=== PATIENT | male | born 1965 | race Caucasian/White ===

== ENCOUNTER 2017-11-02 07:06 | Inpatient (IN) | payer SELFPAY ==
[2017-11-02] VITALS (8 sets, daily range): BP systolic 121–187; BP diastolic 70–104; PULSE 53–79; RESP 18–20; TEMP 98–98.3; O2SAT 92–98
[~2017-11-02] VITALS: Ht 182.9 cm; Wt 95.7 kg
[~2017-11-02 07:06] MED LIST: LIPI40TA PO; PRIN10TA PO; PROM1SUP12 PR; [UNRECOGNIZED DRUG - CODE] PO
--- NOTE | 2017-11-02 07:29 | PD ---
HPI Chief Complaint: Neuro Symptoms/ Deficits Time Seen by Provider: 07:18 Travel History International Travel<30 days: No Contact w/Intl Traveler<30days: No Traveled to known affect area: No History of Present Illness HPI 52yo M with PMH of HTN and HLD presents to the ED with c/o right sided numbness since he woke up at 4:45am this morning. Said he went to bed normal at 10pm last night. Woke up and had right facial, right arm and right leg numbness that lasted about 10 minutes. Said she he had decreased right peripheral vision this morning that has resolved. said his speech is also not normal , seemed a little more slurred to her. Denies any history of CVA, cocaine or drug use, chest pain, sob, n/v, abdominal pain, focal weakness or numbness. Said he felt a little dizzy yesterday. PFSH Past Medical History Arthritis: No Blood Disorders: No Heart Rhythm Problems: No Cancer: No Cardiovascular Problems: Yes (HTN) High Cholesterol: Yes Chemotherapy: No Chest Pain: Yes Congestive Heart Failure: No Cerebrovascular Accident: No Diminished Hearing: No GERD: No Glaucoma: No Headaches: No Hepatitis: Yes (HEPATITIS C) Hiatal Hernia: No Hypertension: Yes Musculoskeletal: Yes Psychiatric: No Myocardial Infarction: No Radiation Therapy: No Seizures: No Thyroid Disease: No Ulcer: No Past Surgical History AICD: No Cholecystectomy: Yes (2005) Genitourinary Surgery: No Pacemaker: No Thoracic Surgery: No Other Surgery: Yes (left hand) Family History Family Myocardial Infarction: Yes Social History Alcohol Use: No Tobacco Use: Yes (CIGARS/DAILY) Substance Use: Yes (MARIJUANA) Allergies-Medications (Allergen,Severity, Reaction): Coded Allergies: No Known Allergies (Verified Allergy, Severe, 05/16/08) Reported Meds & Prescriptions Reported Meds & Active Scripts Active Phenergan 25 mg supp (Promethazine HCl) 25 Mg Sup 25 Mg OR Q8HPRN Reported Prinivil (Lisinopril) 10 Mg Tab 10 Mg PO DAILY Sular (Nisoldipine) 10 Mg Tab 0 Mg PO UNKNOWN DOSE Lipitor (Atorvastatin Calcium) 40 Mg Tab 40 Mg PO DAILY Review of Systems Except as stated in HPI: all other systems reviewed are Neg Physical Exam Narrative GENERAL: 52yo M not in distress. SKIN: Focused skin assessment warm/dry. HEAD: Atraumatic. Normocephalic. EYES: Pupils equal and round. EOMI. No scleral icterus. No injection or drainage. ENT: No nasal bleeding or discharge. Mucous membranes pink and moist. NECK: Trachea midline. No JVD. CARDIOVASCULAR: Regular rate and rhythm. No murmur appreciated. RESPIRATORY: No accessory muscle use. Clear to auscultation. Breath sounds equal bilaterally. GASTROINTESTINAL: Abdomen soft, non-tender, nondistended. MUSCULOSKELETAL: No obvious deformities. No clubbing. No cyanosis. No edema. NEUROLOGICAL: Awake and alert. No obvious cranial nerve deficits. Motor grossly within normal limits. Normal speech. NIH stroke 0. PSYCHIATRIC: Appropriate mood and affect; insight and judgment normal. Data Data Last Documented VS Vital Signs Date Time Temp Pulse Resp B/P (MAP) Pulse Ox O2 Delivery O2 Flow Rate FiO2 11/02/17 07:10 76 18 130/81 (97) 97 11/02/17 07:08 98.3 Room Air Orders Orders Complete Blood Count With Diff (11/02/17 07:25) Basic Metabolic Panel (Bmp) (11/02/17 07:25) Prothrombin Time / Inr (Pt) (11/02/17 07:25) Act Partial Throm Time (Ptt) (11/02/17 07:25) Electrocardiogram (11/02/17 ) Ct Brain W/O Iv Contrast(Rout) (11/02/17 ) Aspirin (Aspirin) (11/02/17 08:45) Admit Order (Ed Use Only) (11/02/17 08:57) Labs Laboratory Tests Test 11/02/17 07:30 White Blood Count 10.9 TH/MM3 Red Blood Count 4.85 MIL/MM3 Hemoglobin 17.0 GM/DL Hematocrit 48.2 % Mean Corpuscular Volume 99.3 FL Mean Corpuscular Hemoglobin 35.1 PG Mean Corpuscular Hemoglobin Concent 35.3 % Red Cell Distribution Width 12.8 % Platelet Count 215 TH/MM3 Mean Platelet Volume 8.6 FL Neutrophils (%) (Auto) 67.8 % Lymphocytes (%) (Auto) 21.9 % Monocytes (%) (Auto) 8.7 % Eosinophils (%) (Auto) 1.2 % Basophils (%) (Auto) 0.4 % Neutrophils # (Auto) 7.4 TH/MM3 Lymphocytes # (Auto) 2.4 TH/MM3 Monocytes # (Auto) 0.9 TH/MM3 Eosinophils # (Auto) 0.1 TH/MM3 Basophils # (Auto) 0.0 TH/MM3 CBC Comment DIFF FINAL Differential Comment Prothrombin Time 10.7 SEC Prothromb Time International Ratio 1.1 RATIO Activated Partial Thromboplast Time 27.0 SEC Blood Urea Nitrogen 19 MG/DL Creatinine 0.98 MG/DL Random Glucose 112 MG/DL Calcium Level 9.4 MG/DL Sodium Level 139 MEQ/L Potassium Level 3.9 MEQ/L Chloride Level 104 MEQ/L Carbon Dioxide Level 29.7 MEQ/L Anion Gap 5 MEQ/L Estimat Glomerular Filtration Rate 80 ML/MIN Hemoglobin A1c 5.6 % Total Bilirubin 0.3 MG/DL Direct Bilirubin 0.1 MG/DL Indirect Bilirubin 0.2 MG/DL Aspartate Amino Transf (AST/SGOT) 36 U/L Alanine Aminotransferase (ALT/SGPT) 45 U/L Alkaline Phosphatase 107 U/L Total Protein 8.2 GM/DL Albumin 4.1 GM/DL Triglycerides Level 104 MG/DL Cholesterol Level 168 MG/DL LDL Cholesterol 110 MG/DL HDL Cholesterol 37.6 MG/DL Cholesterol/HDL Ratio 4.46 RATIO MDM Medical Decision Making Medical Screen Exam Complete: Yes Emergency Medical Condition: Yes Interpretation(s) EKG: NSR 64 Differential Diagnosis TIA vs. peripheral neuropathy Narrative Course 52yo M with right sided numbness that has resolved. Labs reviewed, no leukocytosis. Glucose 112. CT brain showed lacune in left thalamus could be acute lacunar infarct given clinical symptoms. Will admit pt for CVA work up. Pt given aspirin and discussed with hospitalist Dr. Blanco. Diagnosis Primary Impression: Lacunar infarct, acute Admitting Information Admitting Physician Requests: Alayna Silva DO Nov 02, 2017 07:29
[2017-11-02 07:49] LABS: AUTOMATED NEUTROPHIL # 7.4 TH/MM3 (1.8-7.7); BASOPHIL % 0.4 % (0.0-2.0); EOSINOPHIL # 0.1 TH/MM3 (0-0.4); EOSINOPHIL % 1.2 % (0.0-4.0); HEMATOCRIT 48.2 % (39.0-51.0); HEMO FLAGS DIFF FINAL; LYMPH % 21.9 % (9.0-44.0); LYMPHOCYTE # 2.4 TH/MM3 (1.0-4.8); MEAN CELL VOLUME 99.3 FL (80.0-100.0); MEAN CORPUSCULAR HEMOGLOBIN 35.1 PG (27.0-34.0); MEAN CORPUSCULAR HGB CONC 35.3 % (32.0-36.0); MONO % 8.7 % (0.0-8.0); NEUT % 67.8 % (16.0-70.0); PLATELET COUNT 215 TH/MM3 (150-450); RED BLOOD COUNT 4.85 MIL/MM3 (4.50-5.90); RED CELL DISTRIBUTION WIDTH 12.8 % (11.6-17.2); WHITE BLOOD COUNT 10.9 TH/MM3 (4.0-11.0)
[2017-11-02 07:59] LABS: INTERNATIONAL NORMALIZED RATIO 1.1 RATIO; PROTHROMBIN TIME - PATIENT 10.7 SEC (9.8-11.6)
[2017-11-02 08:12] LABS: BICARBONATE 29.7 MEQ/L (21.0-32.0); POTASSIUM 3.9 MEQ/L (3.5-5.1)
--- NOTE | 2017-11-02 08:12 | RADRPT ---
EXAM DATE/TIME: 11/02/2017 07:48 [facility] COMPARISON: No previous studies available for comparison. INDICATIONS : Right sided weakness upon waking RADIATION DOSE: 56.35 CTDIvol (mGy) MEDICAL HISTORY : Hypertension. SURGICAL HISTORY : Cholecystectomy. ENCOUNTER: Initial ACUITY: 1 day PAIN SCALE: 0/10 LOCATION: cranial TECHNIQUE: Multiple contiguous axial images were obtained of the head. Using automated exposure control and adj ustment of the mA and/or kV according to patient size, radiation dose was kept as low as reasonably a chievable to obtain optimal diagnostic quality images. DICOM format image data is available electro nically for review and comparison. FINDINGS: CEREBRUM: A lacune in the left thalamus is seen. The ventricles are normal for age. No evidence of midline bob ft, mass lesion, hemorrhage or acute infarction. No extra-axial fluid collections are seen. POSTERIOR FOSSA: The cerebellum and brainstem are intact. The 4th ventricle is midline. The cerebellopontine angle i s unremarkable. EXTRACRANIAL: The visualized portion of the orbits is intact. SKULL: The calvaria is intact. No evidence of skull fracture. CONCLUSION: 1. Lacune in the left thalamus could be acute lacunar infarct given clinical symptoms. MRI recommende d for confirmation. 2. Otherwise unremarkable CT brain. Julius Chaudhry MD on November 02, 2017 at 8:09 Board Certified Radiologist. This report was verified electronically.
[2017-11-02] MEDS ORDERED: ASPIRIN 325 MG TAB PO ONE (08:45)
[2017-11-02] MEDS ORDERED: ONDANSETRON HCL 4 MG/2 ML VIAL IVP PRN (09:45)
[2017-11-02] MEDS ORDERED: NALOXONE HCL 0.4 MG/ML AMP IV PUSH PRN (09:45)
[2017-11-02] MEDS ORDERED: ACETAMINOPHEN 325 MG TAB PO PRN ×2 (09:45)
[2017-11-02] MEDS ORDERED: SODIUM CHLORIDE 0.9% FLUSH 10 ML FLUSH IV FLUSH PRN (09:45)
[2017-11-02] MEDS: SODIUM CHLOR 0.9% 1000 ML INJ 1,000 ML IV SCH ×2 (10:39→22:53)
[2017-11-02] MEDS: ENOXAPARIN SODIUM 40 MG/0.4 ML SYRINGE SQ SCH (12:02)
--- NOTE | 2017-11-02 13:54 | HHI.HP ---
[facility] Beau [facility] M.D. Admission Diagnosis TIA Diagnoses: Chief Complaint: Right-sided numbness and tingling Travel History International Travel<30 Days: No Contact w/Intl Traveler <30 Da: No Traveled to Known Affected Are: No History of Present Illness Written by Juani Borges, acting as scribe for Dr. Blanco on 11/02/17 at 13: 43. Patient is a 52-year-old male with a primary medical history of HTN and HLD who came into the hospital for complaints of numbness and tingling in the right side of his body including his arm and around the mouth, and also vision changes. Patient states that he hasn't been taking his blood pressure medication for the past 2 months and has restarted taking it after seeing his PCP about 2 weeks ago. States that his blood pressure was measured and it was slightly elevated. States that for the past few days that he has been experiencing mild numbness and tingling on the right side, however, this morning when he woke up from sleep his symptoms were quite severe. He had a hard time getting up. As per , the patient was struggling to ambulate. Patient states that he has also had some visual changes and he felt dizzy, describing the room as spinning around. He endorsed some blurry vision. States that all of these sensations were happening while he was at rest and not aggravated by any activities. Patient continues to have some numbness and tingling on the right side as well as around his mouth on exam. Denies any headaches, palpitations, chest pain. Denies any fevers, chills, nausea, vomiting, diarrhea. Review of Systems Except as stated in HPI: all other systems reviewed are Neg Past Family Social History Past Medical History HTN HLD Hep C Past Surgical History Cholecystectomy Left hand surgeon Reported Medications Reported Meds & Active Scripts Active Phenergan 25 mg supp (Promethazine HCl) 25 Mg Sup 25 Mg NE Q8HPRN Reported Prinivil (Lisinopril) 10 Mg Tab 10 Mg PO DAILY Lipitor (Atorvastatin Calcium) 40 Mg Tab 40 Mg PO DAILY Allergies: Coded Allergies: No Known Allergies (Verified Allergy, Severe, 05/16/08) Active Ordered Medications Current Medications Medications (Trade) Dose Ordered Sig/Yunior Route Start Time Stop Time Status Last Admin (Lipitor) 40 mg DAILY PO 11/03/17 09:00 Sodium Chloride 1,000 ml @ 75 mls/hr [id number] IV 11/02/17 10:00 11/04/17 01:59 11/02/17 10:39 (NS Flush) 2 ml UNSCH PRN IV FLUSH 11/02/17 09:45 (NS Flush) 2 ml BID IV FLUSH 11/02/17 21:00 (Tylenol) 650 mg Q4H PRN PO 11/02/17 09:45 (Zofran Inj) 4 mg Q6H PRN IVP 11/02/17 09:45 (Lovenox Inj) 40 mg Q24H SQ 11/02/17 11:00 11/02/17 12:02 (Tylenol) 650 mg Q6H PRN PO 11/02/17 09:45 (Narcan Inj) 0.4 mg UNSCH PRN IV PUSH 11/02/17 09:45 (Krystina-Colace) 1 tab BID PO 11/02/17 21:00 Family History Father's of heart attack at age 49 and mother of stroke Social History Denies alcohol use Smokes cigar about 5 times per day Marijuana use occasionally Physical Exam Vital Signs Vital Signs Date Time Temp Pulse Resp B/P (MAP) Pulse Ox O2 Delivery O2 Flow Rate FiO2 11/02/17 11:13 53 11/02/17 10:22 11/02/17 10:11 98.0 56 20 155/86 (109) 96 11/02/17 10:00 66 20 133/71 (91) 98 Room Air 11/02/17 07:10 76 18 130/81 (97) 97 11/02/17 07:08 98.3 60 20 187/104 (131) 98 Room Air Physical Exam GENERAL: This is a well-nourished, well-developed patient, in no apparent distress. SKIN: Cool and dry. Multiple healing wounds from abrasions right > left lower extremity. HEAD: Normocephalic. No temporal or scalp tenderness. EYES: Pupils equal round and reactive. Extraocular motions intact. No scleral icterus. No injection or drainage. ENT: Nose without bleeding. Throat without erythema. Uvula midline. Airway patent. NECK: Trachea midline. No JVD or lymphadenopathy. Supple, nontender, no meningeal signs. CARDIOVASCULAR: Regular rate and rhythm without murmurs, gallops, or rubs. RESPIRATORY: Clear to auscultation. Breath sounds equal bilaterally. No wheezes , rales, or rhonchi. GASTROINTESTINAL: Abdomen soft, non-tender, nondistended. No hepato-splenomegaly , or palpable masses. No guarding. MUSCULOSKELETAL: Extremities without clubbing, cyanosis, or edema. NEUROLOGICAL: Awake and alert. Cranial nerves II through XII intact. Oriented to time, person, place. Motor and sensory grossly within normal limits. Normal speech. Normal [id number] test. PSYCH: Mood and affect appropriate. Laboratory Laboratory Tests Test 11/02/17 07:30 White Blood Count 10.9 Red Blood Count 4.85 Hemoglobin 17.0 Hematocrit 48.2 Mean Corpuscular Volume 99.3 Mean Corpuscular Hemoglobin 35.1 Mean Corpuscular Hemoglobin Concent 35.3 Red Cell Distribution Width 12.8 Platelet Count 215 Mean Platelet Volume 8.6 Neutrophils (%) (Auto) 67.8 Lymphocytes (%) (Auto) 21.9 Monocytes (%) (Auto) 8.7 Eosinophils (%) (Auto) 1.2 Basophils (%) (Auto) 0.4 Neutrophils # (Auto) 7.4 Lymphocytes # (Auto) 2.4 Monocytes # (Auto) 0.9 Eosinophils # (Auto) 0.1 Basophils # (Auto) 0.0 CBC Comment DIFF FINAL Differential Comment Prothrombin Time 10.7 Prothromb Time International Ratio 1.1 Activated Partial Thromboplast Time 27.0 Blood Urea Nitrogen 19 Creatinine 0.98 Random Glucose 112 Calcium Level 9.4 Sodium Level 139 Potassium Level 3.9 Chloride Level 104 Carbon Dioxide Level 29.7 Anion Gap 5 Estimat Glomerular Filtration Rate 80 Result Diagram: 11/02/1730 11/02/1730 Imaging Last Impressions Head CT 11/02/17 0000 Signed Impressions: Service Date/Time: Thursday, November 02, 2017 07:48 - CONCLUSION: 1. Lacune in the left thalamus could be acute lacunar infarct given clinical symptoms. MRI recommended for confirmation. 2. Otherwise unremarkable CT brain. MD Blaise Nguyen VTE Risk Assessment Caprini VTE Risk Assessment: Mod/High Risk (score >= 2) Caprini Risk Assessment Model Point Value = 1 Point Value = 2 Point Value = 3 Point Value = 5 Age 41-60 Minor surgery BMI > 25 kg/m2 Swollen legs Varicose veins or History of unexplained or recurrent spontaneous Oral contraceptives or hormone replacement Sepsis (< 1 month) Serious lung disease, including pneumonia (< 1 month) Abnormal pulmonary function Acute myocardial infarction Congestive heart failure (< 1 month) History of inflammatory bowel disease Medical patient at bed rest Age 61-74 Arthroscopic surgery Major open surgery (> 45 min) Laparoscopic surgery (> 45 min) Malignancy Confined to bed (> 72 hours) Immobilizing plaster cast Central venous access Age >= 75 History of VTE Family history of VTE Factor V Leiden Prothrombin [id number] Lupus anticoagulant Anticardiolipin antibodies Elevated serum homocysteine Heparin-induced thrombocytopenia Other congenital or acquired thrombophilia Stroke (< 1 month) Elective arthroplasty Hip, pelvis, or leg fracture Acute spinal cord injury (< 1 month) Prophylaxis Regimen Total Risk Factor Score Risk Level Prophylaxis Regimen 0-1 Low Early ambulation 2 Moderate Order ONE of the following: *Sequential Compression Device (SCD) *Heparin 5000 units SQ BID 3-4 Higher Order ONE of the following medications: *Heparin 5000 units SQ TID *Enoxaparin/Lovenox 40 mg SQ daily (WT < 150 kg, CrCl > 30 mL/min) *Enoxaparin/Lovenox 30 mg SQ daily (WT < 150 kg, CrCl > 10-29 mL/min) *Enoxaparin/Lovenox 30 mg SQ BID (WT < 150 kg, CrCl > 30 mL/min) AND/OR *Sequential Compression Device (SCD) 5 or more Highest Order ONE of the following medications: *Heparin 5000 units SQ TID (Preferred with Epidurals) *Enoxaparin/Lovenox 40 mg SQ daily (WT < 150 kg, CrCl > 30 mL/min) *Enoxaparin/Lovenox 30 mg SQ daily (WT < 150 kg, CrCl > 10-29 mL/min) *Enoxaparin/Lovenox 30 mg SQ BID (WT < 150 kg, CrCl > 30 mL/min) AND *Sequential Compression Device (SCD) Assessment and Plan Problem List: (1) HTN (hypertension) ICD Code: I10 - Essential (primary) hypertension (2) HLD (hyperlipidemia) ICD Code: E78.5 - Hyperlipidemia, unspecified (3) TIA (transient ischemic attack) ICD Code: G45.9 - Transient cerebral ischemic attack, unspecified Assessment and Plan TIA versus acute CVA HTN HLD- LDL 110 - EKG with normal sinus rhythm. - Continues to have numbness and tingling on the right side and also his mouth/ lips are tingling. - CT of the brain showed 1. Lacune in the left thalamus could be acute lacunar infarct given clinical symptoms. MRI recommended for confirmation. - MRI ordered. - Check echocardiogram. - Check carotid US. - ASA 1 dose now, start 81 mg daily tomorrow. - Permissive hypertension. Restart home dose atorvastatin. - check hemoglobin A1c. - Neurochecks every 4 hours, cardiac telemetry. - neurology consult as needed. DVT prop Lovenox Code Status Full code Discussed Condition With Discuss condition with patient, family members, nursing, ED attending Attending Statement This note was transcribed by bruno Borges. I, Dr. Francisco Blanco personally performed the history, physical exam, and medical decision making; and confirmed the accuracy of the information in the transcribed note. Authenticated by Dr. Francisco Blanco on 11/02/17 at 14:38. Juani Castillo Nov 02, 2017 13:54 Francisco Blanco DO Nov 02, 2017 14:38
[2017-11-02 13:59] LABS: INDIRECT BILIRUBIN 0.2 MG/DL (0.0-0.8); TOTAL BILIRUBIN ADULT 0.3 MG/DL (0.2-1.0)
[2017-11-02 14:00] LABS: HDL CHOLESTEROL 37.6 MG/DL (40.0-60.0); LDL CHOLESTEROL 110 MG/DL (0-99)
--- NOTE | 2017-11-02 14:49 | RADRPT ---
EXAM DATE/TIME: 11/02/2017 13:50 [facility] COMPARISON: No previous studies available for comparison. INDICATIONS : Cerebrovascular accident. Right sided numbness. MEDICAL HISTORY : Hypertension. Hepatitis C. HLD. SURGICAL HISTORY : Cholecystectomy. ENCOUNTER: Initial ACUITY: 1 day PAIN SCORE: 0/10 LOCATION: Bilateral neck PEAK SYSTOLIC VELOCITIES (cm/sec): ICA/CCA RATIO: Right: 1.1 Left: 1.1 ICA: Right: 88 Left: 101 CCA: Right: 79 Left: 79 ECA: Right: 131 Left: 92 VERTEBRAL: Right: 46 antegrade Left: 56 antegrade Elevated flow velocities and ICA/CCA ratios have been found to correlate with increased degrees of vessel stenosis, calculated as percentage of diameter relative to a normal segment of distal ICA/CCA FINDINGS: Intimal thickening with mild to moderate plaque is identified in both carotid bifurcations. RIGHT CAROTID: No significant stenosis is visualized. The waveforms are within normal limits. LEFT CAROTID: No significant stenosis is visualized. The waveforms are within normal limits. VERTEBRAL ARTERIES: Antegrade flow is seen in both vertebral arteries. MISCELLANEOUS: None. CONCLUSION: 1. Mild to moderate bilateral carotid atherosclerotic disease. 2. No evidence of hemodynamically significant stenosis. 3. Antegrade flow both vertebral arteries. Dimitry Woodall MD on November 02, 2017 at 14:45 Board Certified Radiologist. This report was verified electronically.
--- NOTE | 2017-11-02 16:20 | RADRPT ---
EXAM DATE/TIME: 11/02/2017 15:24 [facility] COMPARISON: No previous studies available for comparison. INDICATIONS : CVA. Right sided weakness and vision issues this morning. MEDICAL HISTORY : Hypertension. Hypercholesterolemia. SURGICAL HISTORY : Cholecystectomy. ENCOUNTER: Initial ACUITY: 1 day PAIN SCORE: 4/10 LOCATION: Right cranial TECHNIQUE: Multiplanar, multisequence MRI of the brain was performed without contrast. FINDINGS: CEREBRUM: A small T2 hyperintense focus with restricted diffusion is identified centrally within the left thala mus. There is no associated hemorrhage, edema or mass effect. The lesion measures approximately 4-5 m m in size. The ventricles are normal for age. No evidence of midline shift, mass lesion, hemorrhage or acute cortical infarction. No extraaxial fluid collections are seen. The pituitary gland and sup rasellar cistern are normal in configuration. WHITE MATTER: No significant signal abnormalities are seen in the white matter. POSTERIOR FOSSA: The cerebellum and brainstem are intact. The 4th ventricle is midline. The cerebellopontine angle is unremarkable. The cerebellar tonsils are normal in position. DIFFUSION IMAGING: No other focal areas of restricted diffusion are seen. EXTRACRANIAL: The visualized portions of the orbits and paranasal sinuses are unremarkable. CONCLUSION: 1. Very small focus of restricted diffusion in the left thalamus characteristic of a small acute lacu andrew infarct. 2. No evidence of cortical infarct, hemorrhage, mass or edema. Dimitry Woodall MD on November 02, 2017 at 16:14 Board Certified Radiologist. This report was verified electronically.
[2017-11-02 17:12] LABS: HEMOGLOBIN A1a 1.3 %; HEMOGLOBIN A1b 0.8 %; HEMOGLOBIN Ao 84.7 %; HEMOGLOBIN F 1.2 %; HEMOGLOBIN LA1C 2.2 %; HEMOGLOBIN P3 3.8 %
--- NOTE | 2017-11-02 18:58 | EKG ---
Date Performed: 11/02/2017 Time Performed: 07:29:56 PTAGE: 52 years EKG: Sinus rhythm NORMAL ECG PREVIOUS TRACING : 12/03/2005 08.17 Compared to prior tracing no significant change DOCTOR: Avni Reeder Interpretating Date/Time 11/02/2017 18:57:24
--- NOTE | 2017-11-02 19:53 | ECHRPT ---
Indication: CVA/TIA CONCLUSIONS Normal left ventricular size. Mild concentric left ventricular hypertrophy. The left ventricular systolic function is grossly normal on limited imaging. Trace mitral valve regurgitation. There is trace tricuspid valve regurgitation. BP: 155 / 86 HR: 53 Rhythm: Sinus MEASUREMENTS (Male / Female) Normal Values Technical Quality:Fair 2D ECHO LV Diastolic Diameter PLAX 5.4 cm 4.2 - 5.9 / 3.9 - 5.3 cm LV Systolic Diameter PLAX 3.4 cm IVS Diastolic Thickness 1.2 cm 0.6 - 1.0 / 0.6 - 0.9 cm LVPW Diastolic Thickness 1.2 cm 0.6 - 1.0 / 0.6 - 0.9 cm LV Relative Wall Thickness 0.4 RV Internal Dim ED PLAX 3.3 cm LVOT Diameter 2.4 cm Aortic Root Diameter 3.3 cm LA Systolic Diameter LX 3.5 cm 3.0 - 4.0 / 2.7 - 3.8 cm M-MODE AV Cusp Separation MM 2.4 cm DOPPLER AV Peak Velocity 91.0 cm/s AV Peak Gradient 3.3 mmHg AV Mean Gradient 2.0 mmHg AV Velocity Time Integral 17.0 cm LVOT Peak Velocity 72.2 cm/s LVOT Peak Gradient 2.1 mmHg LVOT Velocity Time Integral 12.0 cm LVOT Cardiac Index 1297.3 cm/minm AV Area Cont Eq vti 3.2 cm AV Area Cont Eq pk 3.6 cm Mitral E Point Velocity 55.8 cm/s Mitral A Point Velocity 61.7 cm/s Mitral E to A Ratio 0.9 LV E' Lateral Velocity 6.8 cm/s Mitral E to LV E' Lateral Ratio 8.2 LV E' Septal Velocity 9.6 cm/s Mitral E to LV E' Septal Ratio 5.8 PV Peak Velocity 40.6 cm/s PV Peak Gradient 0.7 mmHg FINDINGS LEFT VENTRICLE Normal left ventricular size. Mild concentric left ventricular hypertrophy. The left ventricular systolic function is grossly normal on limited imaging. RIGHT VENTRICLE Normal right ventricular size and systolic function. LEFT ATRIUM The left atrial size is normal. RIGHT ATRIUM The right atrial size is normal. ATRIAL SEPTUM Normal atrial septal thickness without atrial level shunting by limited color doppler interrogation. AORTA The aortic root and proximal ascending aorta are normal in size on limited imaging. MITRAL VALVE Trace mitral valve regurgitation. AORTIC VALVE Trileaflet aortic valve. No aortic valve stenosis or regurgitation. TRICUSPID VALVE There is trace tricuspid valve regurgitation. PULMONARY VALVE The pulmonary valve is not well visualized. VESSELS The inferior vena cava is normal in size. PERICARDIUM No pericardial effusion. Jordan Lopez MD (Electronically Signed) Final Date:02 November 2017 19:52
[2017-11-02] MEDS: DOCUSATE SODIUM 50 MG/SENNA 8.6 MG TAB PO SCH (20:14)
[2017-11-02] MEDS: SODIUM CHLORIDE 0.9% FLUSH 10 ML FLUSH IV FLUSH SCH (20:14)
[2017-11-03] VITALS (10 sets, daily range): BP systolic 127–181; BP diastolic 77–95; PULSE 55–79; RESP 16–21; TEMP 96.1–98.8; O2SAT 93–97
[2017-11-03 08:17] LABS: AUTOMATED NEUTROPHIL # 6.6 TH/MM3 (1.8-7.7); BASOPHIL # 0.1 TH/MM3 (0-0.2); BASOPHIL % 0.5 % (0.0-2.0); EOSINOPHIL # 0.1 TH/MM3 (0-0.4); EOSINOPHIL % 1.1 % (0.0-4.0); HEMATOCRIT 48.8 % (39.0-51.0); HEMO FLAGS DIFF FINAL; LYMPH % 23.4 % (9.0-44.0); LYMPHOCYTE # 2.3 TH/MM3 (1.0-4.8); MEAN CELL VOLUME 99.2 FL (80.0-100.0); MEAN CORPUSCULAR HEMOGLOBIN 33.8 PG (27.0-34.0); MEAN CORPUSCULAR HGB CONC 34.1 % (32.0-36.0); MONO % 7.7 % (0.0-8.0); NEUT % 67.3 % (16.0-70.0); PLATELET COUNT 209 TH/MM3 (150-450); RED BLOOD COUNT 4.91 MIL/MM3 (4.50-5.90); RED CELL DISTRIBUTION WIDTH 12.6 % (11.6-17.2); WHITE BLOOD COUNT 9.8 TH/MM3 (4.0-11.0)
[2017-11-03 08:40] LABS: ANION GAP 8 MEQ/L (5-15); AST (GOT) 31 U/L (15-37); BICARBONATE 24.4 MEQ/L (21.0-32.0); BLOOD UREA NITROGEN 19 MG/DL (7-18); CHLORIDE 107 MEQ/L (98-107); GLOMERULAR FILTRATION RATE 91 ML/MIN (>89); POTASSIUM 3.7 MEQ/L (3.5-5.1); SODIUM (NA) 139 MEQ/L (136-145)
[2017-11-03 08:41] LABS: ALT (GPT) 44 U/L (12-78)
[2017-11-03 08:43] LABS: ALKALINE PHOSPHATASE 99 U/L (45-117); TOTAL BILIRUBIN ADULT 0.6 MG/DL (0.2-1.0)
[2017-11-03] MEDS: DOCUSATE SODIUM 50 MG/SENNA 8.6 MG TAB PO SCH ×2 (09:00→21:00)
[2017-11-03] MEDS: ATORVASTATIN 40 MG TAB PO SCH (10:04)
[2017-11-03] MEDS: SODIUM CHLORIDE 0.9% FLUSH 10 ML FLUSH IV FLUSH SCH ×2 (10:05→21:00)
[2017-11-03] MEDS: ASPIRIN EC 81 MG TABEC PO SCH (10:05)
[2017-11-03] MEDS: ENOXAPARIN SODIUM 40 MG/0.4 ML SYRINGE SQ SCH (11:48)
[2017-11-03] MEDS: SODIUM CHLOR 0.9% 1000 ML INJ 1,000 ML IV SCH (12:40)
--- NOTE | 2017-11-03 16:05 | MB ---
cc: ANTONIO DEAL M.D. DATE OF : 1965, 52 DATE OF CONSULTATION: 11/03/2017 REASON FOR CONSULTATION: Stroke. HISTORY OF PRESENT ILLNESS: The patient is a 52 year-old gentleman with history of hypertension, hyperlipidemia, who comes in with numbness, tingling, right side of the body, some questionable vision changes that have resolved. Apparently he woke his up. He walked into a wall or to a door. She heard a large thump and he started having his symptoms. He was brought into the ER. He apparently ran out of his blood pressure medicines and went to his primary care physician a few days ago and they restarted it but he does not take aspirin. He was told to but does not take aspirin at all. He still feels a little numb on the right side of his lip and tongue and in the right hand but the leg is fine. Denies dizziness, denies visual changes currently. He has a history of hypertension, hyperlipidemia, history of Hepatitis C. PAST SURGICAL HISTORY: 1. Cholecystectomy. 2. Left hand surgery. REPORTED MEDICATIONS: 1. Prinivil 2. Lipitor ALLERGIES: NONE REPORTED SOCIAL HISTORY: He is a smoker, cigars, occasional marijuana, no alcohol. FAMILY HISTORY: Heart attack dad age 49, mother of stroke. PHYSICAL EXAMINATION: Vital signs: Temperature is 96.8, pulse 79, respiratory rate 20, blood pressure is 159/95, sating at 96% on room air. NECK: Supple. No bruits. HEART: Regular. He is awake, alert, oriented and fluent. Pupils reactive. Visual chang are full. Face symmetrical. Tongue midline. He does have decreased light touch over the right inner corner of his mouth, tongue. 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 There is no drift or leg lag. Cerebellar testing is normal. Toes are both downgoing. DTRs are 1+. Gait is withheld. IMAGING STUDIES Brain MRI shows small acute infarct left thalamic lacunar. Carotid ultrasound, mild moderate bilateral disease but no hemodynamic significant stenosis. LABORATORY DATA CBC today is unremarkable. Coag panel is normal. Chemistries: his cholesterol is 168, triglycerides 104, LDL 110, HDL 37.6, GFR 91, hemoglobin A1c 5.6. IMPRESSION Lacunar left thalamic infarct with a history of hypertension, hyperlipidemia. RECOMMENDATIONS: Recommend getting an MRA [facility] [place] to better delineate his intracranial pathology, place him on a baby aspirin daily. Continue his statin, blood pressure control. Will get him out of bed with physical therapy. SCDs. Lovenox, DVT prophylaxis and if he is stable, discharge planning tomorrow. Will have occupational therapy see him as well given that he has the numbness of the right hand. MD POP Fernandez/WESLEY /2:24 PM /3:28 PM
--- NOTE | 2017-11-03 16:07 | HHI.PR ---
Subjective Remarks Patient still feeling tingling in both arms more is on the right No dizziness or lightheaded MRI showed small acute lacunar infarct Objective Vitals Vital Signs Date Time Temp Pulse Resp B/P (MAP) Pulse Ox O2 Delivery O2 Flow Rate FiO2 11/03/17 15:36 96.1 67 21 181/95 (123) 93 11/03/17 12:03 96.8 79 20 159/95 (116) 94 11/03/17 07:28 97.0 69 20 162/87 (112) 93 11/03/17 05:37 98.8 63 18 138/88 (105) 95 11/03/17 04:00 64 11/03/17 00:10 59 11/02/17 23:34 98.1 66 18 121/70 (87) 96 11/02/17 19:54 98.1 79 18 141/87 (105) 92 I/O 11/02/17 11/02/17 11/02/17 11/03/17 11/03/17 11/03/17 06:59 14:59 22:59 06:59 14:59 22:59 Intake Total 1150 ml Output Total 1100 ml Balance 50 ml Intake Oral 500 ml IV Total 650 ml Output Urine Total 1100 ml Result Diagram: 11/03/1771911/03/17 0720 Objective Remarks GENERAL: This is a well-nourished, well-developed patient, in no apparent distress. SKIN: No rashes, warm and dry HEAD: Atraumatic. Normocephalic. EYES: Pupils equal round and reactive. Extraocular motions intact. No scleral icterus. ENT: Nose without bleeding, or drainage, Airway patent. NECK: Trachea midline. Supple CARDIOVASCULAR: Regular rate and rhythm without murmurs, gallops, or rubs. RESPIRATORY: Fair air entry bilaterally. No wheezes, rales, or rhonchi. GASTROINTESTINAL: Abdomen soft, non-tender, nondistended. Positive bowel sounds MUSCULOSKELETAL: Extremities without clubbing, cyanosis, or edema. Pedal pulses appreciated NEUROLOGICAL: Cranial nerves II through XII intact, sensory and motor strength within normal limits patient Awake and alert. Moves all extremity. Normal speech.no focal neurological deficit A/P Problem List: (1) HTN (hypertension) ICD Code: I10 - Essential (primary) hypertension (2) HLD (hyperlipidemia) ICD Code: E78.5 - Hyperlipidemia, unspecified (3) TIA (transient ischemic attack) ICD Code: G45.9 - Transient cerebral ischemic attack, unspecified Assessment and Plan 11/03: MRI/MRA ultrasound carotid: Reviewed by me as above, awaiting neurology consultation, continue blood pressure monitoring Neuro symptom rule out TIA versus acute CVA HTN HLD- LDL 110 - EKG with normal sinus rhythm. - Continues to have numbness and tingling on the right side and also his mouth/ lips are tingling. - CT of the brain showed 1. Lacune in the left thalamus could be acute lacunar infarct given clinical symptoms. - MRI MRA as above -Pending echocardiogram. -No significant stenosis on carotid US. - ASA 1 dose now, start 81 mg daily tomorrow. - Permissive hypertension. Restart home dose atorvastatin. - hemoglobin A1c. - Neurochecks every 4 hours, cardiac telemetry. - neurology consultation. DVT prop Kristen Muir MD Nov 03, 2017 16:07
--- NOTE | 2017-11-03 16:48 | RADRPT ---
EXAM DATE/TIME: 11/03/2017 15:54 [facility] COMPARISON: MRI BRAIN W/O CONTRAST, November 02, 2017, 15:24. INDICATIONS : CVA. MEDICAL HISTORY : Hypertension. Hypercholesterolemia. SURGICAL HISTORY : Cholecystectomy. ENCOUNTER: Subsequent ACUITY: 2 day PAIN SCORE: 3/10 LOCATION: cranial Please note a normal MRA of the brain does not entirely exclude the possibility of a small aneurysm, nor the possibility of distal intracranial vessel disease. TECHNIQUE: 3D time of flight MRA was performed. Source images, multiplanar STS MIP, and 3D volume MIP reconstru ctions were reviewed. FINDINGS: There is excellent visualization of the major intracranial arteries out to the second-order branch ve ssels. 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 The right posterior cerebral artery originates directly from the anterior circulation. There is no evidence for aneurysm, stenosis, luminal irregularity or vascular malformation. CONCLUSION: 1. 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 2. Otherwise normal appearing proximal intracranial circulation without evidence of stenosis, vasculo jeff, aneurysm or vascular malformation. Dimitry Woodall MD on November 03, 2017 at 16:41 Board Certified Radiologist. This report was verified electronically.
[2017-11-04] VITALS: PULSE 60
[2017-11-04 04:00] VITALS: PULSE 50
[2017-11-04 04:13] VITALS: BP 139/91; PULSE 61; RESP 18; TEMP 96.1; O2SAT 95
[2017-11-04 07:51] VITALS: BP 148/96; PULSE 55; RESP 18; TEMP 97.8; O2SAT 95
[2017-11-04] MEDS: DOCUSATE SODIUM 50 MG/SENNA 8.6 MG TAB PO SCH (09:00)
[2017-11-04] MEDS: ASPIRIN EC 81 MG TABEC PO SCH (10:28)
[2017-11-04] MEDS: ATORVASTATIN 40 MG TAB PO SCH (10:28)
[2017-11-04] MEDS: SODIUM CHLORIDE 0.9% FLUSH 10 ML FLUSH IV FLUSH SCH (10:29)
[2017-11-04] MEDS: ENOXAPARIN SODIUM 40 MG/0.4 ML SYRINGE SQ SCH (10:29)
[2017-11-04 12:18] VITALS: BP 144/97; PULSE 63; RESP 18; TEMP 98.6; O2SAT 93
[2017-11-04] MEDS ORDERED: ECASA81 PO (14:10)
[2017-11-04 15:46] VITALS: BP 165/87; PULSE 62; RESP 18; TEMP 98; O2SAT 96
--- NOTE | 2017-11-04 18:15 | HHI.PR ---
Subjective Remarks Seen and examined earlier today He denied any acute symptoms, no dizziness lightheaded, no blurry vision or focal weakness Objective Vitals Vital Signs Date Time Temp Pulse Resp B/P (MAP) Pulse Ox O2 Delivery O2 Flow Rate FiO2 11/04/17 15:46 98.0 62 18 165/87 (113) 96 11/04/17 12:18 98.6 63 18 144/97 (113) 93 11/04/17 07:51 97.8 55 18 148/96 (113) 95 11/04/17 04:13 96.1 61 18 139/91 (107) 95 11/04/17 04:00 50 11/04/17 00:00 60 11/03/17 23:44 96.4 57 16 127/77 (94) 97 11/03/17 20:15 55 11/03/17 20:13 97.4 78 18 151/95 (113) 96 I/O 11/03/17 11/03/17 11/03/17 11/04/17 11/04/17 11/04/17 07:00 15:00 23:00 07:00 15:00 23:00 Intake Total 1000 ml Balance 1000 ml IV Total 1000 ml # Voids 3 # Bowel Movements 1 Result Diagram: 11/03/1771911/03/1720 Objective Remarks GENERAL: This is a well-nourished, well-developed patient, in no apparent distress. SKIN: No rashes, warm and dry HEAD: Atraumatic. Normocephalic. EYES: Pupils equal round and reactive. Extraocular motions intact. No scleral icterus. ENT: Nose without bleeding, or drainage, Airway patent. NECK: Trachea midline. Supple CARDIOVASCULAR: Regular rate and rhythm without murmurs, gallops, or rubs. RESPIRATORY: Fair air entry bilaterally. No wheezes, rales, or rhonchi. GASTROINTESTINAL: Abdomen soft, non-tender, nondistended. Positive bowel sounds MUSCULOSKELETAL: Extremities without clubbing, cyanosis, or edema. Pedal pulses appreciated NEUROLOGICAL: Cranial nerves II through XII intact, sensory and motor strength within normal limits patient Awake and alert. Moves all extremity. Normal speech.no focal neurological deficit A/P Problem List: (1) HTN (hypertension) ICD Code: I10 - Essential (primary) hypertension (2) HLD (hyperlipidemia) ICD Code: E78.5 - Hyperlipidemia, unspecified (3) TIA (transient ischemic attack) ICD Code: G45.9 - Transient cerebral ischemic attack, unspecified Assessment and Plan 11/03: MRI/MRA ultrasound carotid: Reviewed by me as above, awaiting neurology consultation, continue blood pressure monitoring 11/04: Cleared by neurology for discharge and follow up as an outpatient, workup unremarkable Neuro symptom rule out TIA versus acute CVA HTN HLD- LDL 110 - EKG with normal sinus rhythm. - Continues to have numbness and tingling on the right side and also his mouth/ lips are tingling. - CT of the brain showed 1. Lacune in the left thalamus could be acute lacunar infarct given clinical symptoms. - MRI MRA as above -Pending echocardiogram. -No significant stenosis on carotid US. - ASA 1 dose now, start 81 mg daily tomorrow. - Permissive hypertension. Restart home dose atorvastatin. - hemoglobin A1c. - Neurochecks every 4 hours, cardiac telemetry. - neurology consultation. DVT prop Lovenox Discharge Planning Discharge patient to home Condition on discharge: Improved Healthy heart Diet as tolerated Ad Michelle activity Rx written: See med rec Follow-up with primary care physician neurology within 1 week Kristen Alexandre MD Nov 04, 2017 18:15
== END 2017-11-04 16:46 | disposition home or self-care (01) | DRG 66 ==
LOC: NEPC 07:06 → NEDA 08:59 → NEPGCP 10:06 → OBSVTOIN 11-03 12:16
PROVIDERS: ADMIT Hospitalist; ATTEND Hospitalist
DX: I63.8 Other cerebral infarction (principal); I10 Essential (primary) hypertension; E78.5 Hyperlipidemia, unspecified; F17.290 Nicotine dependence, other tobacco product, uncomplicated; H53.8 Other visual disturbances; B19.20 Unspecified viral hepatitis C without hepatic coma; R20.0 Anesthesia of skin
CPT/HCPCS: 70450; 70544; 70551; 80048; 80053; 80061; 80076; 82948; 83036; 85025; 85610; 85730; 87641; 93005; 93306; 93880; G8987-GO; G8987-GP; G8988-GO; G8988-GP; G8996-GN; G8997-GN; G8998-GN; J1650; J7030